=== PATIENT | female | born 1950 | race African-American/Black ===

== ENCOUNTER 2025-08-29 09:15 | Inpatient (IN) | payer MEDICAID, MEDICARE ==
[~2025-08-29] VITALS: Ht 162.6 cm; Wt 89.8 kg
[~2025-08-29 09:15] MED LIST: AMLO5TAB88 PO; ASPI-1160 PO; ATOR20TA PO; COR12 PO; FURO40TA5 MT; HYDR25TA78 PO; LANTUSUD SUBCUT; LOSA50TA41 PO; P20 PO; SUCR1TAB PO
[2025-08-29 09:17] VITALS: O2SAT 100
[2025-08-29] MEDS: PANTOPRAZOLE SODIUM 40 MG/VIAL IV ONE (10:00)
[2025-08-29] MEDS: METOCLOPRAMIDE HCL 10MG/2ML VIAL IV ONE (10:00)
[2025-08-29 10:09] LABS: BASOPHILS % 0.9 % (0.0-2.0); EOSINOPHILS % 1.2 % (0.0-5.0); HEMATOCRIT. 26.2 % (36.0-48.0); HEMOGLOBIN. 8.7 g/dL (12.0-16.0); LYMPHOCYTES % 21.3 % (20.0-50.0); MEAN PLATELET VOLUME 8.0 fl (7.4-10.4); MONOCYTES % 6.0 % (2.0-8.0); NEUTROPHILS % 70.6 % (40.0-76.0); PLATELET 335 x1000/uL (130-400); RED BLOOD CELL COUNT 2.95 mill/uL (4.2-5.4); RED CELL DISTRIBUTION WIDTH 14.5 % (11.6-14.6)
[2025-08-29 10:27] LABS: CREATININE 1.3 mg/dL (0.6-1.0)
[2025-08-29 10:28] LABS: UREA NITROGEN BLOOD 35 mg/dL (9-23)
[2025-08-29 10:29] LABS: ASPARTATE AMINOTRANSFERASE 16 IU/L (<34); TROPONIN I HIGH SENSITIVITY 9 ng/L (3.0-34)
[2025-08-29 10:30] LABS: BILIRUBIN DIRECT 0.2 mg/dL (<=3.0); BILIRUBIN TOTAL 0.4 mg/dL (0.1-1.0); PROTEIN TOTAL 5.4 g/dL (6.0-8.3)
[2025-08-29] MEDS: LACTATED RINGERS 1,000 ML IV SCH (10:42)
[2025-08-29] MEDS: FERROUS SULFATE 325MG TABLET PO SCH (12:00)
[2025-08-29] MEDS: SODIUM CHLORIDE 0.9% 1,000 ML IV SCH (12:00)
[2025-08-29] MEDS ORDERED: ACETAMINOPHEN 650MG/20.3ML UDC GT PRN (12:00)
[2025-08-29] MEDS ORDERED: PANTOPRAZOLE SODIUM 40 MG/VIAL IV SCH (12:00)
[2025-08-29] MEDS ORDERED: HYDROCODONE/ACETAMINOPHEN 5/325MG TABLET PO PRN (12:00)
[2025-08-29] MEDS ORDERED: IPRATROPIUM/ALBUTEROL 0.5-3(2.5)MG/3ML NEB HHN PRN (12:00)
[2025-08-29] MEDS: PANTOPRAZOLE 80 MG in SODIUM CHLORIDE 0.9% 100 ML IV SCH (12:11)
[2025-08-29] MEDS ORDERED: DEXTROSE 50% WATER 50ML SYRINGE IV PRN (12:30)
[2025-08-29 12:59] VITALS: BP 115/65; PULSE 74; RESP 18; TEMP 38; O2SAT 99
[2025-08-29] MEDS: BLOOD SUGAR DIAGNOSTIC STRIP TEST SCH (13:00)
[2025-08-29] MEDS: INSULIN LISPRO 100 UNITS/ML SUBCUT SCH (13:16)
[2025-08-29] MEDS: SODIUM POLYSTYRENE SULFONATE 15 G/60 ML BOT PO NR (13:57)
[2025-08-29] MEDS: ENOXAPARIN 40MG/0.4ML SYR SUBCUT SCH (13:57)
[2025-08-29] MEDS: SUCRALFATE 1G TABLET PO SCH ×2 (13:58→20:27)
[2025-08-29] MEDS: CALCIUM 1250MG TABLET (500MG ELEMENTAL CALCIUM) PO NR (13:58)
[2025-08-29] MEDS: SODIUM CHLORIDE 0.9% 1,000 ML IV ONE (13:59)
[2025-08-29 14:29] VITALS: BP 115/75; PULSE 76; RESP 20; TEMP 36.3068
[2025-08-29 14:46] LABS: FOLIC ACID (FOLATE) SERUM 9.60 ng/mL (>5.38)
[2025-08-29 14:47] LABS: VITAMIN B12 SERUM 272 pg/mL (211-911)
[2025-08-29] MEDS ORDERED: IOHEXOL-300 100 ML BOTTLE ONE (14:54)
[2025-08-29] MEDS ORDERED: ALBUTEROL (0.5%) 2.5MG/0.5ML NEB HHN SCH (15:00)
[2025-08-29] MEDS ORDERED: CALCIUM GLUCONATE 100MG/ML 10ML VIAL IV SCH (15:00)
[2025-08-29 16:44] VITALS: BP 116/61; PULSE 75; RESP 18; TEMP 36.5; O2SAT 99
[2025-08-29] MEDS: CALCIUM GLUCONATE 100MG/ML 10ML VIAL IV SCH (17:51)
[2025-08-29] MEDS: SODIUM BICARBONATE 8.4% 50MEQ/50ML SYR IV SCH (17:51)
[2025-08-29] MEDS: DEXTROSE 50% WATER 50ML SYRINGE IV SCH (17:51)
[2025-08-29] MEDS: INSULIN REGULAR (HUMULIN R) 1000UNITS/10ML VIAL IV SCH (17:55)
[2025-08-29 20:00] VITALS: BP 126/49; PULSE 85; RESP 18; TEMP 36.4; O2SAT 97
[2025-08-29] MEDS: ATORVASTATIN CALCIUM 20MG TABLET PO SCH (20:27)
[2025-08-29] MEDS: PANTOPRAZOLE SODIUM 40 MG/VIAL IV SCH (20:27)
[2025-08-29] MEDS ORDERED: AMLODIPINE 5MG TABLET PO SCH (21:00)
[2025-08-29] MEDS: ACETAMINOPHEN 325MG TABLET PO PRN (21:48)
[2025-08-29] MEDS ORDERED: INSULIN GLARGINE 100 UNITS/ML SUBCUT SCH (22:00)
[2025-08-30] VITALS: BP 122/60; PULSE 82; RESP 18; TEMP 36.4; O2SAT 99
[2025-08-30 02:28] LABS: INR 1.1
[2025-08-30 02:45] LABS: CREATININE 1.3 mg/dL (0.6-1.0); UREA NITROGEN BLOOD 32.0 mg/dL (9-23)
[2025-08-30 02:47] LABS: TROPONIN I HIGH SENSITIVITY 26 ng/L (3.0-34)
[2025-08-30 03:25] LABS: HEPATITIS C AB NON REACTIVE (Neg) (Negative)
[2025-08-30 04:00] VITALS: BP 158/83; PULSE 79; RESP 18; TEMP 36.2; O2SAT 99
[2025-08-30 07:53] LABS: TRIGLYCERIDE 176.0 mg/dL (0-150)
[2025-08-30 07:54] LABS: LDL CHOLESTEROL 35.0 mg/dL (5-100)
[2025-08-30 08:00] VITALS: BP 135/76; PULSE 79; RESP 18; TEMP 36.4; O2SAT 99
[2025-08-30] MEDS: CYANOCOBALAMIN 1000MCG/ML VIAL IM SCH (08:18)
[2025-08-30] MEDS: DOCUSATE SODIUM 100MG CAPSULE PO PRN (08:18)
[2025-08-30] MEDS ORDERED: ASPIRIN 81MG TABLET PO SCH (09:00)
[2025-08-30 11:38] LABS: BG BASE EXCESS -1.1 mmol/L (-2.0-3.0); BG CARBOXYHEMOGLOBIN 0.3 % (0.5-1.5); BG DEOXYHEMOGLOBIN 1.9 % (0.0-5.0); BG FRACTION INSPIRED OXYGEN 21; BG HCO3 ACT 20.0 mmol/L (21.0-28.0); BG METHEMOGLOBIN 0.3 % (0.5-1.5); BG OXYGEN SATURATION 98.1 % (94.0-98.0); BG OXYHEMOGLOBIN 97.5 % (94.0-98.0); BG PCO2 22.6 mmHg (32.0-45.0); BG PH 7.564 (7.350-7.450); BG PO2 100.3 mmHg (83.0-108.0); BG SAMPLE SITE LEFT RADIAL; BG TOTAL HEMOGLOBIN 10.0 g/dL (12.0-16.0); BG VENT MODE ROOM AIR
[2025-08-30 12:00] VITALS: BP 168/70; PULSE 82; RESP 18; TEMP 36.6; O2SAT 98
[2025-08-30] MEDS: CLONIDINE 0.1MG TABLET PO PRN (12:56)
[2025-08-30 12:57] LABS: PHOSPHORUS 4.0 mg/dL (2.5-4.9)
[2025-08-30] MEDS: POTASSIUM CHLORIDE 20MEQ/PACKET PO NR (13:47)
[2025-08-30 16:00] VITALS: BP 139/56; PULSE 74; RESP 18; TEMP 36.6; O2SAT 98
[2025-08-30] MEDS ORDERED: AMLODIPINE 5MG TABLET PO SCH (16:00)
[2025-08-30] MEDS: FUROSEMIDE 40MG TABLET PO SCH (17:22)
[2025-08-30 18:42] LABS: TROPONIN I HIGH SENSITIVITY 258 ng/L (3.0-34)
[2025-08-30 20:00] VITALS: BP 140/54; PULSE 71; RESP 18; TEMP 36.6; O2SAT 100
[2025-08-30] MEDS: CARVEDILOL 12.5MG TABLET PO SCH (21:45)
[2025-08-30] MEDS: INSULIN GLARGINE 100 UNITS/ML SUBCUT SCH (21:46)
[2025-08-31 04:00] VITALS: BP 104/83; PULSE 67; RESP 18; TEMP 36.5; O2SAT 100
[2025-08-31 06:10] LABS: CREATININE 1.1 mg/dL (0.6-1.0); UREA NITROGEN BLOOD 16.0 mg/dL (9-23)
[2025-08-31 06:44] LABS: BASOPHILS % 0.6 % (0.0-2.0); EOSINOPHILS % 2.9 % (0.0-5.0); LYMPHOCYTES % 28.5 % (20.0-50.0); MEAN PLATELET VOLUME 8.0 fl (7.4-10.4); MONOCYTES % 11.6 % (2.0-8.0); NEUTROPHILS % 56.4 % (40.0-76.0); PLATELET 239 x1000/uL (130-400); RED BLOOD CELL COUNT 2.37 mill/uL (4.2-5.4); RED CELL DISTRIBUTION WIDTH 14.9 % (11.6-14.6)
[2025-08-31 08:00] VITALS: BP 152/59; PULSE 74; RESP 20; TEMP 36.1; O2SAT 97
[2025-08-31 08:08] LABS: HEMATOCRIT. 20.8 % (36.0-48.0); HEMOGLOBIN. 7.0 g/dL (12.0-16.0)
[2025-08-31 08:11] LABS: ALPHA FETOPROTEIN TUMOR MARKER < 1.8 ng/mL (0.0-9.2); CA 19-9 18 U/mL (0-35); CARCINOEMBRYONIC AG - SEND OUT 2.2 ng/mL (0.0-4.7)
[2025-08-31] MEDS ORDERED: NON FORMULARY MED XX SCH (08:45)
[2025-08-31] MEDS: POTASSIUM CHLORIDE 20MEQ TABLET SR PO SCH (08:54)
[2025-08-31] MEDS ORDERED: AMLODIPINE 5MG TABLET PO SCH (09:00)
[2025-08-31] MEDS: IRON SUCROSE COMPLEX 100 MG/5 ML ML IV SCH (10:22)
[2025-08-31 12:00] VITALS: BP 141/56; PULSE 85; RESP 20; TEMP 36.7; O2SAT 98
[2025-08-31 16:00] VITALS: BP 151/50; PULSE 63; RESP 18; TEMP 36.7; O2SAT 100
[2025-08-31 17:55] LABS: CLARITY URINE CLEAR (CLEAR); GLUCOSE URINE 3+ (NEGATIVE); KETONES URINE NEGATIVE (NEGATIVE); LEUKOCYTE ESTERASE URINE NEGATIVE (NEGATIVE); NITRITE URINE NEGATIVE (NEGATIVE); OCCULT BLOOD URINE NEGATIVE (NEGATIVE); PH URINE 7.0 (4.5-8.0); PROTEIN URINE 1+ (NEGATIVE); SPECIFIC GRAVITY URINE 1.019 (1.005-1.030); UROBILINOGEN URINE 0.2 E.U./dL (0.2-1.0)
[2025-08-31 18:22] LABS: BASOPHILS % 0.6 % (0.0-2.0); EOSINOPHILS % 1.2 % (0.0-5.0); HEMATOCRIT. 22.6 % (36.0-48.0); HEMOGLOBIN. 7.8 g/dL (12.0-16.0); LYMPHOCYTES % 26.7 % (20.0-50.0); MEAN PLATELET VOLUME 7.7 fl (7.4-10.4); MONOCYTES % 8.6 % (2.0-8.0); NEUTROPHILS % 62.9 % (40.0-76.0); PLATELET 284 x1000/uL (130-400); RED BLOOD CELL COUNT 2.63 mill/uL (4.2-5.4); RED CELL DISTRIBUTION WIDTH 14.5 % (11.6-14.6)
[2025-08-31 18:33] LABS: CREATININE 1.0 mg/dL (0.6-1.0); UREA NITROGEN BLOOD 14 mg/dL (9-23)
[2025-08-31 18:55] LABS: COLOR URINE STRAW (YELLOW)
[2025-08-31 18:56] LABS: BACTERIA URINE TRACE; RBC URINE NONE SEEN /hpf (0-2); SQUAMOUS EPITHELIAL CELL URINE RARE /lpf (RARE/1+); WBC URINE 0-2 /hpf (0-2)
[2025-08-31 20:00] VITALS: BP 148/64; PULSE 82; RESP 20; TEMP 36.7; O2SAT 98
[2025-08-31] MEDS: ONDANSETRON HCL 4MG/2ML INJ IV PRN (22:07)
[2025-09-01] VITALS (7 sets, daily range): BP systolic 111–167; BP diastolic 48–71; PULSE 62–94; RESP 18–20; TEMP 35.9–37.2; O2SAT 97–100
[2025-09-01 08:24] LABS: BASOPHILS % 0.6 % (0.0-2.0); EOSINOPHILS % 1.9 % (0.0-5.0); HEMATOCRIT. 23.1 % (36.0-48.0); HEMOGLOBIN. 7.8 g/dL (12.0-16.0); LYMPHOCYTES % 34.0 % (20.0-50.0); MEAN PLATELET VOLUME 7.7 fl (7.4-10.4); MONOCYTES % 9.8 % (2.0-8.0); NEUTROPHILS % 53.7 % (40.0-76.0); PLATELET 279 x1000/uL (130-400); RED BLOOD CELL COUNT 2.64 mill/uL (4.2-5.4); RED CELL DISTRIBUTION WIDTH 14.9 % (11.6-14.6)
[2025-09-01] MEDS ORDERED: POTASSIUM CHLORIDE 20 MEQ in DEXT 5% WATER 90 ML IV ONE (08:30)
[2025-09-01 08:32] LABS: CREATININE 1.2 mg/dL (0.6-1.0); INR 1.0
[2025-09-01 08:33] LABS: UREA NITROGEN BLOOD 10 mg/dL (9-23)
[2025-09-01 08:34] LABS: ASPARTATE AMINOTRANSFERASE 15 IU/L (<34)
[2025-09-01 08:35] LABS: BILIRUBIN TOTAL 0.6 mg/dL (0.1-1.0); PROTEIN TOTAL 6.1 g/dL (6.0-8.3)
[2025-09-01] MEDS ORDERED: KCL 20MEQ/100ML PREMIX 100 ML IV ONE (08:45)
[2025-09-01] MEDS ORDERED: POTASSIUM CHLORIDE 20MEQ TABLET SR PO ONE (09:00)
[2025-09-01] MEDS: POTASSIUM CHLORIDE 20MEQ TABLET SR PO NR (09:06)
[2025-09-01] MEDS ORDERED: PROPOFOL 200MG/20ML VIAL IV ONE (15:23)
[2025-09-01] MEDS: ONDANSETRON HCL 4MG/2ML INJ IV PRN (16:28)
[2025-09-02 00:01] VITALS: BP 127/59; PULSE 81; RESP 16; TEMP 36.2; O2SAT 95
[2025-09-02 04:25] VITALS: BP 142/63; PULSE 72; RESP 17; TEMP 37.3; O2SAT 97
[2025-09-02 08:00] VITALS: BP 118/67; PULSE 81; RESP 18; TEMP 36.6; O2SAT 100
[2025-09-02 10:10] LABS: CANCER ANTIGEN 125 23.7 U/mL (0.0-38.1)
[2025-09-02 11:16] VITALS: BP 118/71; PULSE 85; RESP 18; TEMP 97.9
[2025-09-04 19:06] LABS: CA 27.29 24.3 U/mL (0.0-38.6)
== END 2025-09-02 12:36 | disposition home or self-care (01) | DRG 381 ==
LOC: ER 10:15 → UNDOADMIN 11:16 → 8WST 11:16 → EDBEDREQ 11:22 → EDBEDREQTM 11:22 → EDBEDREQSVC 11:44 → ENRESERV 11:54
PROVIDERS: ADMIT Hospitalist; ATTEND Hospitalist
PROC: 0DB78ZX Excision of Stomach, Pylorus, Via Natural or Artificial Opening Endoscopic, Diagnostic (ICD-10-PCS; principal; 2025-09-01)
DX: K22.11 Ulcer of esophagus with bleeding (principal); E87.1 Hypo-osmolality and hyponatremia; K22.6 Gastro-esophageal laceration-hemorrhage syndrome; I13.0 Hypertensive heart and chronic kidney disease with heart failure and stage 1 through stage 4 chronic kidney disease, or unspecified chronic kidney disease; N17.9 Acute kidney failure, unspecified; E11.22 Type 2 diabetes mellitus with diabetic chronic kidney disease; D50.0 Iron deficiency anemia secondary to blood loss (chronic); K29.71 Gastritis, unspecified, with bleeding; N18.9 Chronic kidney disease, unspecified; E66.9 Obesity, unspecified; D72.829 Elevated white blood cell count, unspecified; E87.5 Hyperkalemia; Z68.32 Body mass index [BMI] 32.0-32.9, adult; E53.8 Deficiency of other specified B group vitamins; E87.6 Hypokalemia; I25.10 Atherosclerotic heart disease of native coronary artery without angina pectoris; K44.9 Diaphragmatic hernia without obstruction or gangrene; K80.20 Calculus of gallbladder without cholecystitis without obstruction; E78.5 Hyperlipidemia, unspecified; I25.2 Old myocardial infarction; Z79.4 Long term (current) use of insulin; Z85.3 Personal history of malignant neoplasm of breast; Z86.73 Personal history of transient ischemic attack (TIA), and cerebral infarction without residual deficits; Z88.0 Allergy status to penicillin; Z95.1 Presence of aortocoronary bypass graft
CPT/HCPCS: 36415; 36600; 71045; 74177; 76770; 80048; 80053; 80061; 80076; 81003; 82010; 82105; 82270; 82375; 82378; 82550; 82607; 82728; 82746; 82805; 82962; 83036; 83540; 83550; 83735; 84100; 84484; 85014; 85018; 85025; 85044; 85379; 86300; 86301; 86304; 86705; 86850; 86900; 87015; 87045; 87340; 87427; 87449; 88305; 93005; 93970; 96361; 96374; 96375; 97162; 97165; 99291; G0378; J0612; J1650; J1815; J2405; J2470; J2704; J2765; J3420; J3490; J7050; Q9967